=== PATIENT | female | born 1940 | race Caucasian/White ===

== ENCOUNTER 2022-06-19 14:24 | Inpatient (IN) | payer MEDICARE, OTHER ==
[2022-06-19 14:38] LABS: BASOPHILS ABSOLUTE AUTO 0.03 10^3/uL (0.00-0.50); BASOPHILS PERCENT AUTO 0.3 % (0-1); EOSINOPHILS ABSOLUTE AUTO 0.16 10^3/uL (0.00-1.50); EOSINOPHILS PERCENT AUTO 1.5 % (0-6); HEMATOCRIT 51.9 % (37.0-47.0); HEMOGLOBIN 17.4 g/dL (12.0-16.0); IMMATURE GRAN ABSOLUTE AUTO 0.02 10^3/uL (0.00-0.49); IMMATURE GRAN PERCENT AUTO 0.2 % (0.0-4.9); LYMPHOCYTES ABSOLUTE AUTO 2.78 10^3/uL (0.60-5.00); LYMPHOCYTES PERCENT AUTO 25.6 % (24-44); MEAN CORPUSCULAR HEMOGLOBIN 31.3 pg (27.0-32.0); MEAN CORPUSCULAR HGB CONC 33.5 g/dL (32.0-36.0); MEAN CORPUSCULAR VOLUME 93.3 fL (83.0-97.0); MONOCYTES PERCENT AUTO 9.2 % (0-10); NEUTROPHILS ABSOLUTE AUTO 6.85 x10^3/uL (1.80-8.00); NEUTROPHILS PERCENT AUTO 63.2 % (41-71); PLATELET COUNT,PLT 291 10^3/uL (150-400); RED BLOOD CELL COUNT 5.56 x10^6/uL (4.00-5.50); WHITE BLOOD CELL COUNT,WBC 10.8 10^3/uL (4.0-11.0)
[2022-06-19 15:10] LABS: BLOOD UREA NITROGEN,BUN 26 mg/dL (7-18); C-REACTIVE PROTEIN 0.3 mg/dL (0.2-0.8); CALCIUM 9.8 mg/dL (8.4-10.1); CARBON DIOXIDE,CO2 26 mmol/L (21-32); CHLORIDE,CL 104 mEq/L (98-106); CREATININE 1.6 mg/dL (0.6-1.0); GLUCOSE RANDOM 132 mg/dL (75-99); POTASSIUM,K 4.7 mEq/L (3.5-5.0); PRO B-TYPE NATRIUR PEPT,BNPPRO 4118 pg/mL (0-1000); SODIUM,NA 144 mEq/L (136-145); TSH ULTRASENSITIVE 2.22 uIU/mL (0.36-5.60)
[2022-06-19 15:11] LABS: ESTIMATED GFR 32 mL/min (>=60)
[2022-06-19] MEDS ORDERED: Acetaminophen 325 MG Tab PO PRN (16:00)
[2022-06-19] MEDS ORDERED: Polyethylene Glycol 3350 Powder 17 GM Packet PO PRN (16:00)
[2022-06-19] MEDS ORDERED: Ondansetron 4 MG/2 ML SDV IV PRN (16:00)
[2022-06-19] MEDS ORDERED: Ondansetron 4 MG Tab.DIS PO PRN (16:00)
[2022-06-19] MEDS ORDERED: Docusate Sodium 100 MG Cap PO PRN (16:00)
[2022-06-19] MEDS ORDERED: Iopamidol 755 Mg/ML 100 ML Bottle IVPUSH ONE (16:15)
[2022-06-19] MEDS: Furosemide 20 MG/2 ML VIAL IVPUSH SCH (17:05)
[2022-06-19] MEDS ORDERED: Apixaban 5 MG Tab PO SCH ×2 (18:30→20:00)
[2022-06-19] MEDS: Apixaban 5 MG Tab PO SCH (19:57)
[2022-06-20 07:38] LABS: BASOPHILS ABSOLUTE AUTO 0.02 10^3/uL (0.00-0.50); BASOPHILS PERCENT AUTO 0.3 % (0-1); EOSINOPHILS ABSOLUTE AUTO 0.26 10^3/uL (0.00-1.50); EOSINOPHILS PERCENT AUTO 4.2 % (0-6); HEMATOCRIT 43.7 % (37.0-47.0); HEMOGLOBIN 14.9 g/dL (12.0-16.0); LYMPHOCYTES ABSOLUTE AUTO 1.95 10^3/uL (0.60-5.00); LYMPHOCYTES PERCENT AUTO 31.5 % (24-44); MEAN CORPUSCULAR HEMOGLOBIN 31.8 pg (27.0-32.0); MEAN CORPUSCULAR HGB CONC 34.1 g/dL (32.0-36.0); MEAN CORPUSCULAR VOLUME 93.2 fL (83.0-97.0); MONOCYTES ABSOLUTE AUTO 0.57 10^3/uL (0.00-1.50); MONOCYTES PERCENT AUTO 9.2 % (0-10); NEUTROPHILS ABSOLUTE AUTO 3.39 x10^3/uL (1.80-8.00); NEUTROPHILS PERCENT AUTO 54.8 % (41-71); PLATELET COUNT,PLT 235 10^3/uL (150-400); RED BLOOD CELL COUNT 4.69 x10^6/uL (4.00-5.50); WHITE BLOOD CELL COUNT,WBC 6.2 10^3/uL (4.0-11.0)
[2022-06-20] MEDS: Furosemide 20 MG/2 ML VIAL IVPUSH SCH ×2 (07:49→17:00)
[2022-06-20] MEDS: Apixaban 5 MG Tab PO SCH ×2 (07:49→20:58)
[2022-06-20 08:28] LABS: CREATININE 1.1 mg/dL (0.6-1.0); EST CRCL DRUG DOSING (CG) 34.05 mL/min; POTASSIUM,K 3.4 mEq/L (3.5-5.0)
[2022-06-20] MEDS: Potassium Chloride 10 MEQ Tab.ER PO SCH (17:00)
[2022-06-21 07:13] LABS: BASOPHILS ABSOLUTE AUTO 0.03 10^3/uL (0.00-0.50); BASOPHILS PERCENT AUTO 0.5 % (0-1); EOSINOPHILS ABSOLUTE AUTO 0.26 10^3/uL (0.00-1.50); EOSINOPHILS PERCENT AUTO 4.1 % (0-6); HEMATOCRIT 44.5 % (37.0-47.0); HEMOGLOBIN 14.7 g/dL (12.0-16.0); IMMATURE GRAN ABSOLUTE AUTO 0.01 10^3/uL (0.00-0.49); IMMATURE GRAN PERCENT AUTO 0.2 % (0.0-4.9); LYMPHOCYTES ABSOLUTE AUTO 2.07 10^3/uL (0.60-5.00); LYMPHOCYTES PERCENT AUTO 32.6 % (24-44); MEAN CORPUSCULAR HEMOGLOBIN 31.2 pg (27.0-32.0); MEAN CORPUSCULAR VOLUME 94.5 fL (83.0-97.0); MONOCYTES ABSOLUTE AUTO 0.62 10^3/uL (0.00-1.50); MONOCYTES PERCENT AUTO 9.8 % (0-10); NEUTROPHILS ABSOLUTE AUTO 3.35 x10^3/uL (1.80-8.00); NEUTROPHILS PERCENT AUTO 52.8 % (41-71); PLATELET COUNT,PLT 237 10^3/uL (150-400); RED BLOOD CELL COUNT 4.71 x10^6/uL (4.00-5.50); WHITE BLOOD CELL COUNT,WBC 6.3 10^3/uL (4.0-11.0)
[2022-06-21] MEDS: Furosemide 20 MG/2 ML VIAL IVPUSH SCH ×2 (07:54→15:22)
[2022-06-21] MEDS: Apixaban 5 MG Tab PO SCH ×2 (07:55→19:39)
[2022-06-21] MEDS: Potassium Chloride 10 MEQ Tab.ER PO SCH ×2 (07:55→17:11)
[2022-06-21 08:22] LABS: CREATININE 1.2 mg/dL (0.6-1.0); EST CRCL DRUG DOSING (CG) 31.21 mL/min; MAGNESIUM 1.8 mg/dL (1.8-2.4); POTASSIUM,K 4.5 mEq/L (3.5-5.0)
[2022-06-21] MEDS ORDERED: diphenhydrAMINE 25 MG Cap PO PRN (10:07)
[2022-06-21] MEDS ORDERED: Non-Formulary Medication 1 Each (Lutein [Lutein] 20 MG Tablet) PO SCH (10:15)
[2022-06-21] MEDS: Formoterol/Mometasone 200-5 MCG 8.8 GM Inhaler IH SCH (11:44)
[2022-06-21] MEDS: Aspirin 81 MG Tab.EC PO SCH (11:45)
[2022-06-21] MEDS: Cyanocobalamin (Vitamin B12) 1,000 MCG Tab PO SCH (11:45)
[2022-06-21] MEDS: Multivitamin Tab PO SCH (11:47)
[2022-06-21] MEDS: Cholecalciferol (Vitamin D3) 25 MCG Tab PO SCH (11:47)
[2022-06-21] MEDS: Metoprolol Succinate 25 MG Tab.ER PO SCH (11:47)
[2022-06-21] MEDS ORDERED: VERAPAMIL HCL 180 MG PO SCH (20:00)
[2022-06-21] MEDS ORDERED: Verapamil 180 MG Tab.ER PO SCH (20:00)
[2022-06-21] MEDS ORDERED: Simvastatin 10 MG Tab PO SCH (20:00)
[2022-06-22] MEDS: Apixaban 5 MG Tab PO SCH (07:41)
[2022-06-22] MEDS: Potassium Chloride 10 MEQ Tab.ER PO SCH (07:42)
[2022-06-22] MEDS: Cyanocobalamin (Vitamin B12) 1,000 MCG Tab PO SCH (07:42)
[2022-06-22] MEDS: Cholecalciferol (Vitamin D3) 25 MCG Tab PO SCH (07:42)
[2022-06-22] MEDS: Metoprolol Succinate 25 MG Tab.ER PO SCH (07:43)
[2022-06-22] MEDS: Multivitamin Tab PO SCH (07:44)
[2022-06-22] MEDS: Aspirin 81 MG Tab.EC PO SCH (07:44)
[2022-06-22 07:54] LABS: BASOPHILS ABSOLUTE AUTO 0.02 10^3/uL (0.00-0.50); BASOPHILS PERCENT AUTO 0.3 % (0-1); EOSINOPHILS PERCENT AUTO 2.7 % (0-6); HEMATOCRIT 47.2 % (37.0-47.0); HEMOGLOBIN 15.7 g/dL (12.0-16.0); IMMATURE GRAN ABSOLUTE AUTO 0.02 10^3/uL (0.00-0.49); IMMATURE GRAN PERCENT AUTO 0.3 % (0.0-4.9); LYMPHOCYTES ABSOLUTE AUTO 2.13 10^3/uL (0.60-5.00); LYMPHOCYTES PERCENT AUTO 29.2 % (24-44); MEAN CORPUSCULAR HEMOGLOBIN 31.3 pg (27.0-32.0); MEAN CORPUSCULAR HGB CONC 33.3 g/dL (32.0-36.0); MONOCYTES ABSOLUTE AUTO 0.62 10^3/uL (0.00-1.50); MONOCYTES PERCENT AUTO 8.5 % (0-10); NEUTROPHILS ABSOLUTE AUTO 4.31 x10^3/uL (1.80-8.00); PLATELET COUNT,PLT 258 10^3/uL (150-400); RED BLOOD CELL COUNT 5.02 x10^6/uL (4.00-5.50); WHITE BLOOD CELL COUNT,WBC 7.3 10^3/uL (4.0-11.0)
[2022-06-22] MEDS ORDERED: Calcium Carbonate 500 MG Tab.Chew PO SCH (08:00)
[2022-06-22] MEDS: Formoterol/Mometasone 200-5 MCG 8.8 GM Inhaler IH SCH (08:00)
[2022-06-22] MEDS ORDERED: Furosemide 20 MG Tab PO SCH (08:00)
[2022-06-22 08:11] LABS: CALCIUM 8.8 mg/dL (8.4-10.1); CREATININE 1.1 mg/dL (0.6-1.0); EST CRCL DRUG DOSING (CG) 34.05 mL/min; POTASSIUM,K 4.5 mEq/L (3.5-5.0)
== END 2022-06-22 15:30 | disposition home or self-care (01) | DRG 175 ==
LOC: CC.MS 14:24 → CC.FCMC 14:24 → UNDOADMIN 15:27 → CC.MS 15:27
PROVIDERS: ADMIT Family Medicine; ATTEND Nurse Practitioner
DX: I26.94 Multiple subsegmental thrombotic pulmonary emboli without acute cor pulmonale (principal); I50.33 Acute on chronic diastolic (congestive) heart failure; K57.32 Diverticulitis of large intestine without perforation or abscess without bleeding; I50.813 Acute on chronic right heart failure; R09.02 Hypoxemia; J45.909 Unspecified asthma, uncomplicated; E78.5 Hyperlipidemia, unspecified; I11.0 Hypertensive heart disease with heart failure; M81.0 Age-related osteoporosis without current pathological fracture; M17.0 Bilateral primary osteoarthritis of knee; M25.50 Pain in unspecified joint; I27.21 Secondary pulmonary arterial hypertension; Z98.890 Other specified postprocedural states; Z90.710 Acquired absence of both cervix and uterus; Z98.49 Cataract extraction status, unspecified eye; Z79.01 Long term (current) use of anticoagulants; Z79.899 Other long term (current) drug therapy; Z88.8 Allergy status to other drugs, medicaments and biological substances; Z79.82 Long term (current) use of aspirin; Z98.51 Tubal ligation status; Z90.721 Acquired absence of ovaries, unilateral; Z87.891 Personal history of nicotine dependence
CPT/HCPCS: 36415; 71046; 71275; 80048; 83735; 83880; 84443; 84484; 85025; 85379; 86140; 93005; 93010; 93306; 97110-GP; 97161-GP; 99223; 99232; 99233; 99238; A9270-GY; J1940; Q9967